=== PATIENT | male | born 1965 | race Caucasian/White ===

== ENCOUNTER 2019-10-20 18:07 | Emergency (ER) | payer MEDICAID ==
[~2019-10-20] VITALS: Ht 188 cm; Wt 103.4 kg
[2019-10-20 18:51] VITALS: BP 129/75
--- NOTE | 2019-10-20 18:54 | NUR ---
WAIT AT LOBBY
--- NOTE | 2019-10-20 20:06 | NUR ---
PT AMBULATED TO [facility] WITH STEADY GAIT
[2019-10-20 20:41] LABS: BILIRUBIN,URINE NEGATIVE (NEGATIVE); BLOOD, URINE 3+ (NEGATIVE); COLOR,URINE RED (YELLOW); LEUKOCYTE ESTERASE ,URINE 1+ (NEGATIVE); NITRITE, URINE POSITIVE (NEGATIVE); PH,URINE 7.5 (5.0-9.0); UGLUCOSE NEGATIVE (NEGATIVE)
[2019-10-20 20:50] LABS: APPEARANCE,URINE CLOUDY (CLEAR)
--- NOTE | 2019-10-20 20:50 | NUR ---
54 Y/O MALE C/O HEMATURIA AND DYSURIA X 1 DAY. PT STATES 8/10 BURNING PAIN, WORSE WITH URINATION. PT STATES LOWER BACK PAIN X 1 DAY. DENIES FEVER. PT SITTING IN CHB WITH CHAIRSIDE. RR EVEN AND UNLABORED. VSS. MEDHX: DENIES ALLERGIES:NKA
[2019-10-20] MEDS ORDERED: cefTRIAXone 1,000 MG in LIDOCAINE MPF 1% 2.1 ML IM ONE (21:00)
[2019-10-20] MEDS ORDERED: cefTRIAXone 1,000 MG VIAL ONE (21:08)
[2019-10-20] MEDS ORDERED: LIDOCAINE MPF 1% 5 ML ONE (21:08)
[2019-10-20 21:20] LABS: RBC,URINE TOO NUMEROUS TO COUN /HPF (0-5); WBC,URINE >25 (MANY) /HPF (0-5)
[2019-10-20 21:25] VITALS: BP 129/75
--- NOTE | 2019-10-20 21:25 | NUR ---
Patient discharged with v/s stable. Written and verbal after care instructions given and explained. Patient alert, oriented and verbalized understanding of instructions. Ambulatory with steady gait. All questions addressed prior to discharge. ID band removed. Patient advised to follow up with PMD. Rx of PYRIDIUM, KEFLEX, AND IBURPROFEN given. Patient educated on indication of medication including possible reaction and side effects. Opportunity to ask questions provided and answered.
--- NOTE | 2019-10-20 21:25 | NUR ---
PT D/C BEFORE MED COULD BE RE-EVALUATED.
== END 2019-10-20 21:25 | disposition home or self-care (01) ==
LOC: MED 18:07
DX: N39.0 Urinary tract infection, site not specified (principal)
CPT/HCPCS: 74176; 81001; 87086; 96372; 99284; J0696; J2001

== ENCOUNTER 2021-03-29 19:53 | Emergency (ER) | payer BC, MEDICAID ==
[~2021-03-29] VITALS: Ht 182.9 cm; Wt 100.7 kg
[2021-03-29 20:09] VITALS: BP 120/68
--- NOTE | 2021-03-29 21:05 | NUR ---
55 YO M BIB SELF WITH C/C OF BURNING AND PAIN 7/10 DURING URINATION. PT STATED HE HAS N INCREASED URGENCY TO URINATE AND AT TIMES URINATES ON SELF. PT DENIED FEVER, CHILLA, N/V. PT STATED HE IS SEEING UROLOGIST FOR ENLARGED PROSTATE. DENIES BLOOD IN URINE. PT IS SITTING UP IN BED, IS AT BEDSIDE. BED LOCKED IN LOWEST POSITION, SIDE RAILS X1. HX: ENLARGED PROSTATE, HYPERLIPIDEMIA RX: DENIES NKA
[2021-03-29] MEDS ORDERED: PHENAZOPYRIDINE 100 MG TAB PO ONE (21:10)
[2021-03-29] MEDS ORDERED: cephALEXin 500 MG CAP PO ONE (21:10)
--- NOTE | 2021-03-29 21:10 | NUR ---
CARMELITA VILLANUEVA AT BEDSIDE.
[2021-03-29] MEDS ORDERED: CEPH-588 PO (22:12)
[2021-03-29] MEDS ORDERED: PHEN-1593 PO (22:12)
[2021-03-29] MEDS ORDERED: TAMS0.4C96 PO (22:12)
[2021-03-29 22:15] LABS: APPEARANCE,URINE CLEAR (CLEAR); BILIRUBIN,URINE NEGATIVE (NEGATIVE); BLOOD, URINE 2+ (NEGATIVE); COLOR,URINE YELLOW (YELLOW); LEUKOCYTE ESTERASE ,URINE NEGATIVE (NEGATIVE); NITRITE, URINE NEGATIVE (NEGATIVE); UGLUCOSE NEGATIVE (NEGATIVE)
[2021-03-29 22:25] LABS: RBC,URINE 0-5 /HPF (0-5)
[2021-03-29 22:46] VITALS: BP 120/68
--- NOTE | 2021-03-29 22:46 | NUR ---
Patient discharged with v/s stable. Written and verbal after care instructions given and explained. Patient alert, oriented and verbalized understanding of instructions. Ambulatory with steady gait. All questions addressed prior to discharge. ID band removed. Patient advised to follow up with PMD. Rx of CEPHALEXIN, PYRIDIUM, FLOMAX given. Patient educated on indication of medication including possible reaction and side effects. Opportunity to ask questions provided and answered.
[2021-03-30] MEDS ORDERED: TAMSULOSIN 0.4 MG CAP PO SCH (08:30)
== END 2021-03-29 22:46 | disposition home or self-care (01) ==
LOC: MED 19:53
DX: N39.0 Urinary tract infection, site not specified (principal); N40.0 Benign prostatic hyperplasia without lower urinary tract symptoms; Z79.899 Other long term (current) drug therapy
CPT/HCPCS: 81001; 87086; 99283

== ENCOUNTER 2021-04-01 15:22 | Emergency (ER) | payer BC ==
[~2021-04-01] VITALS: Ht 188 cm; Wt 103.4 kg
[~2021-04-01 15:22] MED LIST: CEPH-588 PO; PHEN-1593 PO; TAMS0.4C96 PO
[2021-04-01 15:33] VITALS: BP 153/81
--- NOTE | 2021-04-01 16:27 | NUR ---
PT AMB TO BED 12
--- NOTE | 2021-04-01 16:40 | NUR ---
BIB SELF FOR RECHECK. SEEN HERE 03/29/21 FOR BPH, URINARY RETENTION. C/O DIZZINESS, FLOWER, BP 153/81.DENIES DYSURIA OR URINARY RETENTION AT THIS TIME.
--- NOTE | 2021-04-01 16:44 | NUR ---
Dr. Jimenez is evaluating the patient at bedside.
[2021-04-01] MEDS ORDERED: MECLIZINE 25 MG TAB PO ONE (16:50)
[2021-04-01] MEDS ORDERED: MECL-303 PO (18:15)
[2021-04-01 18:26] VITALS: BP 153/81
== END 2021-04-01 18:26 | disposition home or self-care (01) ==
LOC: MED 15:22 → EDBD 15:22 → MED 18:26
DX: R42 Dizziness and giddiness (principal); T50.905A Adverse effect of unspecified drugs, medicaments and biological substances, initial encounter; Y92.89 Other specified places as the place of occurrence of the external cause
CPT/HCPCS: 99282; J8597